=== PATIENT | male | born 1940 | race Caucasian/White ===

== ENCOUNTER → 2018-10-20 | Outpatient (CLI) | payer MEDICARE ==
--- NOTE | 2018-10-20 14:19 | US ---
EXAMINATION TYPE: US kidneys/renal and bladder DATE OF EXAM: 10/20/2018 COMPARISON: NONE CLINICAL HISTORY: R31.0 Gross Hematuria. EXAM MEASUREMENTS: Right Kidney: 10.4 x 4.3 x 5.1 cm Left Kidney: 12.7 x 8.0 x 7.0 cm Post Void Residual Volume: mL Right Kidney: multiple cysts, little normal parenchyma, largest 2 measuring 1.) 8.5 x 8.1 x 8.1, 2.) 5.1 x 5.4 x 4.9cm Left Kidney: multiple cysts, little normal parenchyma, largest measuring 1.) 6.7 x 6.0 x 5.9cm, 2.) 6.0 x 5.5 x 6.3cm Bladder: Vascular mass seen right measuring 3.2 x 3.7 x 2.5cm, Hutch diverticulum also noted Cysts show anechoic appearance with increased through transmission and imperceptible wall. Increased cortical echogenicity, poor cortical medullary differentiation, kidneys are atrophic. No evident ascites. 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
== END | disposition home or self-care (01) ==
LOC: RADUSWWP 13:17
PROVIDERS: ATTEND Urology
DX: R31.0 Gross hematuria (principal)
CPT/HCPCS: 76770